=== PATIENT | male | born 1990 | race Caucasian/White ===

== ENCOUNTER 2017-03-14 20:53 | Emergency (ER) | payer SELFPAY ==
[2017-03-14 21:45] VITALS: BP 108/79
[2017-03-14] MEDS ORDERED: Lidocaine 1% with EPINEPHrine 1:100,000 50 ML MDV SUBCUT STA (21:46)
[2017-03-14] MEDS ORDERED: HYDROmorphone 1 MG/ML Syringe IM ONE (21:46)
[2017-03-14] MEDS ORDERED: Bacitracin Oint 1 GM U/D Packet TOP ONE (21:46)
[2017-03-14] MEDS ORDERED: Diphtheria,Pertussis(Acell),Tetanus Vaccine 0.5 ML SDV IM ONE (21:49)
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
--- NOTE | 2017-03-15 09:02 | CR ---
Right hand There is normal alignment. There are no findings of fracture. The soft tissues are unremarkable. The re is no radiopaque foreign body. Impression: 1. Negative exam.
== END 2017-03-14 23:24 | disposition home or self-care (01) ==
LOC: JP.ED 20:53
DX: S61.411A Laceration without foreign body of right hand, initial encounter (principal); F17.210 Nicotine dependence, cigarettes, uncomplicated; Z23 Encounter for immunization; W45.8XXA Other foreign body or object entering through skin, initial encounter
CPT/HCPCS: 12002; 73120; 90471; 90715; 99283; J1170